=== PATIENT | male | born 1935 | race Caucasian/White ===

== ENCOUNTER → 2020-02-02 | Day surgery (SDC) | payer MEDICARE, BC, OTHER ==
[2020-01-29 11:39] LABS: BASOPHILS # (AUTO) 0.1 (0.0-0.1); BASOPHILS % 1.3 % (0.0-1.0); EOSINOPHILS # (AUTO) 0.1 (0.0-0.4); EOSINOPHILS % 1.7 % (0.0-6.0); HEMATOCRIT 46.5 % (38.2-49.6); HEMOGLOBIN 15.4 g/dL (14.0-18.0); LYMPHOCYTES # (AUTO) 1.5 (1.0-3.2); LYMPHOCYTES % 20.5 % (18.0-39.1); MEAN CORPUSCULAR HEMOGLOBIN 31.2 pg (28-32); MEAN CORPUSCULAR HGB CONC 33.1 g/dL (31-35); MEAN CORPUSCULAR VOLUME 94.1 fL (81-99); MONOCYTES # (AUTO) 0.7 (0.2-0.8); MONOCYTES % 9.9 % (4.4-11.3); NEUTROPHILS # (AUTO) 4.9 (2.1-6.9); NEUTROPHILS % 66.2 % (38.7-80.0); PLATELET COUNT 207 x10e3/uL (140-360); RED BLOOD COUNT 4.94 x10e6/uL (4.3-5.7); RED CELL DISTRIBUTION WIDTH 14.3 % (11.7-14.4)
--- NOTE | 2020-01-29 11:40 | Diagnostic Imaging Report ---
EXAMINATION: CHEST 2 VIEWS INDICATION: Pre-operative COMPARISON: None FINDINGS: LINES/TUBES:None LUNGS:The lungs are well-inflated. No focal consolidation or pulmonary edema. PLEURA:No pleural effusion or pneumothorax. MEDIASTINUM:The cardiomediastinal silhouette appears normal in size and shape. BONES/SOFT TISSUES:No acute osseous injury. Degenerative changes of the visualized spine. ABDOMEN:No free air under the diaphragm. IMPRESSION: No focal pneumonia or pulmonary edema. Signed by: Mike Anders MD on 01/29/2020 11:37 AM
[2020-01-29 12:10] LABS: ALANINE AMINOTRANSFERASE 13 IU/L (0-55); ALBUMIN 3.7 g/dL (3.5-5.0); ALBUMIN/GLOBULIN RATIO 1.1 (0.8-2.0); ALKALINE PHOSPHATASE 89 IU/L (40-150); ANION GAP 13.3 mmol/L (8-16); BLOOD UREA NITROGEN 15 mg/dL (7-26); BUN/CREATININE RATIO 15 (6-25); CALCIUM 9.6 mg/dL (8.4-10.2); CARBON DIOXIDE 25 mmol/L (22-29); CHLORIDE 110 mmol/L (98-107); CREATININE, SERUM 0.99 mg/dL (0.72-1.25); EST GLOMERULAR FILTRATION RATE > 60 ML/MIN (60-); GLUCOSE 85 mg/dL (74-118); POTASSIUM 4.3 mmol/L (3.5-5.1); SODIUM 144 mmol/L (136-145)
[~2020-02-02] MED LIST: B&O 60MG R/S 60 MG SUPP PR ONE; CEFAZOLIN SOD 1 GM/NS 50ML 100 ML IV ONE; COSOPT EYE DROP10 ML OU; DEXAMETHASONE SOD PHOS INJ 4 MG/ML VIAL ONE; DEXTROSE 5%/0.45% SOD CHL 1,000 ML IV ONE; DIATRIZOATE MEGLUMINE 300 MG/1 ML BTL UR ONE; EPHEDRINE SULFATE INJ 50 MG/ML VIAL ONE; ETOMIDATE 2 MG/ML 10 ML INJ IV ONE; FENTANYL CITRATE/PF 100MCG/2 ML INJ ONE; IOPAMIDOL 300MG/ML 50ML INFUS..BTL IV ONE; LATANOPROST2.5 ML OP; LIDOCAINE HCL 2% LOCAL INJ 5 ML SDV VIAL INJ ONE; ONDANSETRON HCL INJ 2MG/ML 2ML 2 MG/ML VIAL ONE; SEVOFLURANE INHAL SOLN 250 ML PEN BTL ONE; TRAVATAN Z5 ML OU
[2020-02-02 11:05] VITALS: BP 143/87
--- NOTE | 2020-02-05 14:25 | Operative Report ---
DATE OF PROCEDURE: 02/02/2020 SURGEON: Rosalino Rogers MD PREOPERATIVE DIAGNOSES: 1. Multiple stones seen in prostatic fossa. 2. Status post seed implantation. 3. Cancer of the prostate. POSTOPERATIVE DIAGNOSES: 1. Multiple stones seen in prostatic fossa. 2. Status post seed implantation. 3. Cancer of the prostate. OPERATION PERFORMED: Cystoscopy, laser lithotripsy of multiple stones in the prostatic fossa with removal of such stones. ANESTHESIOLOGIST: Staff. ANESTHESIA: General. FINDINGS: The patient has a normal urethra in the prostatic fossa. The patient had multiple stones. This stones formed when the patient has one of the multiple seeds that were implanted on his prostate for treatment of his prostate cancer. They come out and they get concretions. The stones are not removal because the original nidus is a seed that is still partially in the prostate. They were difficult to remove. We have done this once before. PROCEDURE IN DETAIL: With the patient under satisfactory general anesthesia, the patient was placed in the supine position on the operating table. Legs were placed on stirrups. Genitalia was prepped with pHisoHex solution and draped in the usual manner. Cystoscopy was performed with a 12-degree angle lens. At this point, examination revealed multiple stones that were attached to the prostate trying to push them with the tip of the cystoscope cause bleeding. Therefore, I introduced the 1000 micron fiber and treated the stones with the laser. The stones were quite hard. I took pictures of the stones and several of the seeds that were seen. There was a little area of concretions on the right side of the prostatic fossa that was right next to the sphincter. I decided not to treat that completely because I did not want to make the patient incontinent. I would have to discuss that with him when he comes to the office and we determined on a cystoscopy in the office. We are going to do about that in the future. I treated all of the remaining stones. I was able to treat 99% of those stones. The fragments were removed with the Ellik evacuator. The larger fragments of fat in the bladder were treated in the bladder and I removed them also using the Ellik evacuator. There was some bleeding that I controlled with the laser by backing off the laser and backing off on the power and I controlled and got good hemostasis. At that point, I introduced the #20-K[place] Gilman catheter after removing the resectoscope and inflated the balloon appropriately, irrigated the urine. The return was clear and I made sure that the patient went to the recovery room in satisfactory condition. DISCHARGE INSTRUCTIONS: Continue medication. Diet as tolerated. Ambulation as tolerated and I discussed with the patient the use of tramadol as well as antibiotics. He agreed with all that. I did call his contact number, so that the contact number knew what was going on. He will be seen in the office on Sunday to remove the Gilman catheter and then we will check to make sure he is able to empty his bladder. After that, I will be discussing with the patient doing a cystoscopy again in the office and more frequently to monitor this seeds that I spit out and formed stones. MD LOY Alexander/MODL /[id number]
== END | disposition home or self-care (01) ==
LOC: OR 06:07
PROVIDERS: ATTEND Urology
DX: N21.0 Calculus in bladder (principal); C61 Malignant neoplasm of prostate; I10 Essential (primary) hypertension; Z88.2 Allergy status to sulfonamides; Z01.810 Encounter for preprocedural cardiovascular examination; Z01.812 Encounter for preprocedural laboratory examination; Z11.59 Encounter for screening for other viral diseases; Z98.890 Other specified postprocedural states
CPT/HCPCS: 36415; 52317; 71046; 74420; 80053; 85025; 87086; 87635; 88300; 93005; J0690; J1100; J2001; J2405; J3010; Q9967

== ENCOUNTER 2024-06-15 07:22 | Inpatient (IN) | payer BC, MEDICARE ==
[2024-06-15] VITALS (10 sets, daily range): BP systolic 101–114; BP diastolic 43–59; PULSE 60–74; RESP 12–20; TEMP 98.7–99.1; O2SAT 97–100
[~2024-06-15] VITALS: Ht 182.9 cm; Wt 93.4 kg
[~2024-06-15 07:22] MED LIST changes: -B&O 60MG R/S 60 MG SUPP PR ONE; -CEFAZOLIN SOD 1 GM/NS 50ML 100 ML IV ONE; -DEXAMETHASONE SOD PHOS INJ 4 MG/ML VIAL ONE; -DEXTROSE 5%/0.45% SOD CHL 1,000 ML IV ONE; -DIATRIZOATE MEGLUMINE 300 MG/1 ML BTL UR ONE; -EPHEDRINE SULFATE INJ 50 MG/ML VIAL ONE; -ETOMIDATE 2 MG/ML 10 ML INJ IV ONE; -FENTANYL CITRATE/PF 100MCG/2 ML INJ ONE; -IOPAMIDOL 300MG/ML 50ML INFUS..BTL IV ONE; -LIDOCAINE HCL 2% LOCAL INJ 5 ML SDV VIAL INJ ONE; -ONDANSETRON HCL INJ 2MG/ML 2ML 2 MG/ML VIAL ONE; -SEVOFLURANE INHAL SOLN 250 ML PEN BTL ONE
[2024-06-15 08:59] LABS: BASOPHILS # (AUTO) 0.1 (0.0-0.1); BASOPHILS % 0.5 % (0.0-1.0); EOSINOPHILS % 0.3 % (0.0-6.0); HEMATOCRIT 44.6 % (38.2-49.6); HEMOGLOBIN 14.6 g/dL (14.0-18.0); LYMPHOCYTES # (AUTO) 0.3 (1.0-3.2); LYMPHOCYTES % 2.3 % (18.0-39.1); MEAN CORPUSCULAR HEMOGLOBIN 31.9 pg (28-32); MEAN CORPUSCULAR HGB CONC 32.7 g/dL (31-35); MEAN CORPUSCULAR VOLUME 97.4 fL (81-99); MONOCYTES # (AUTO) 0.4 (0.2-0.8); MONOCYTES % 3.3 % (4.4-11.3); NEUTROPHILS # (AUTO) 12.3 (2.1-6.9); NEUTROPHILS % 93.1 % (38.7-80.0); PLATELET COUNT 168 x10e3/uL (140-360); RED BLOOD COUNT 4.58 x10e6/uL (4.3-5.7); RED CELL DISTRIBUTION WIDTH 14.2 % (11.7-14.4); WHITE BLOOD COUNT 13.18 x10e3/uL (4.8-10.8)
[2024-06-15] MEDS: SODIUM CHLORIDE 0.9% 1000ML 1,000 ML IV STA ×3 (09:09→11:30)
[2024-06-15 09:10] LABS: INR 1.09; PROTHROMBIN TIME 14.7 seconds (11.9-14.5)
[2024-06-15] MEDS: ACETAMINOPHEN 325 MG TAB PO ONE (09:10)
[2024-06-15 09:11] LABS: PARTIAL THROMBOPLASTIN TIME 26.3 seconds (23.8-35.5)
[2024-06-15 09:18] LABS: TROPONIN I < 0.05 ng/mL (0.0-0.40)
[2024-06-15 09:20] LABS: ALBUMIN 3.7 g/dL (3.5-5.0); ALBUMIN/GLOBULIN RATIO 1.2 (0.8-2.0); ALKALINE PHOSPHATASE 96 IU/L (40-150); ANION GAP 13.7 mmol/L (8-16); BILIRUBIN,TOTAL 0.9 mg/dL (0.2-1.2); BLOOD UREA NITROGEN 22 mg/dL (7-26); BUN/CREATININE RATIO 22 (6-25); CALCIUM 9.6 mg/dL (8.4-10.2); CARBON DIOXIDE 20 mmol/L (22-29); CHLORIDE 109 mmol/L (98-107); CREATININE, SERUM 1.02 mg/dL (0.72-1.25); EST GLOMERULAR FILTRATION RATE 71 ML/MIN (>=60); GLUCOSE 103 mg/dL (74-118); MAGNESIUM 1.7 MG/DL (1.3-2.1); POTASSIUM 3.7 mmol/L (3.5-5.1); SODIUM 139 mmol/L (136-145); TOTAL PROTEIN 6.9 g/dL (6.5-8.1)
[2024-06-15 09:34] LABS: ALANINE AMINOTRANSFERASE < 6 IU/L (0-55)
[2024-06-15 09:44] LABS: COVID 19 ANTIGEN NOT DETECTED (NEGATIVE)
[2024-06-15 09:45] LABS: INFLUENZAE A&B ANTIGEN (RAPID) NEGATIVE (NEGATIVE); RESPIRATORY SYNC. VIRUS NEGATIVE (NEGATIVE)
[2024-06-15 11:18] LABS: BILIRUBIN,URINE SMALL (NEGATIVE); CLARITY,URINE SL CLOUDY (CLEAR); COLOR,URINE AMBER (YELLOW); GLUCOSE, URINE NEGATIVE (NEGATIVE); KETONES,URINE TRACE (NEGATIVE); LEUKOCYTE ESTERASE ,URINE TRACE (NEGATIVE); NITRITE,URINE NEGATIVE (NEGATIVE); PH,URINE 5.5 (5 - 7); PROTEIN,URINE DIPSTICK TRACE (NEGATIVE); URINE UROBILINOGEN 1 mg/dL (0.2 - 1)
[2024-06-15 11:34] LABS: BACTERIA,URINE MODERATE /HPF; WBC,URINE (MAN) 0-5 /HPF (0-5)
[2024-06-15] MEDS ORDERED: ONDANSETRON HCL INJ 2MG/ML 2ML 2 MG/ML VIAL IV PRN (11:45)
[2024-06-15] MEDS ORDERED: Vancomycin IV 1 GM VIAL ONE (15:23)
[2024-06-15] MEDS ORDERED: SODIUM CHLORIDE 0.9% 250ML 250 ML ONE (15:23)
[2024-06-15] MEDS: Vancomycin IV 1 GM in SODIUM CHLORIDE 0.9% 250ML 250 ML IV ONE (15:45)
[2024-06-15] MEDS: SODIUM CHLORIDE 0.9% 1000ML 1,000 ML IV SCH (19:34)
[2024-06-15 21:21] LABS: TROPONIN I 0.041 ng/mL (0-0.300)
[2024-06-16] VITALS (17 sets, daily range): BP systolic 95–148; BP diastolic 40–95; PULSE 57–71; RESP 14–25; TEMP 98.2–99; O2SAT 97–100
[2024-06-16 06:42] LABS: BASOPHILS # (AUTO) 0.1 (0.0-0.1); BASOPHILS % 0.6 % (0.0-1.0); HEMATOCRIT 37.8 % (38.2-49.6); HEMOGLOBIN 12.3 g/dL (14.0-18.0); LYMPHOCYTES # (AUTO) 0.6 (1.0-3.2); MEAN CORPUSCULAR HEMOGLOBIN 32.3 pg (28-32); MEAN CORPUSCULAR HGB CONC 32.5 g/dL (31-35); MEAN CORPUSCULAR VOLUME 99.2 fL (81-99); MONOCYTES # (AUTO) 0.5 (0.2-0.8); MONOCYTES % 5.7 % (4.4-11.3); NEUTROPHILS # (AUTO) 8.3 (2.1-6.9); NEUTROPHILS % 87.3 % (38.7-80.0); PLATELET COUNT 140 x10e3/uL (140-360); RED BLOOD COUNT 3.81 x10e6/uL (4.3-5.7); RED CELL DISTRIBUTION WIDTH 14.7 % (11.7-14.4); WHITE BLOOD COUNT 9.49 x10e3/uL (4.8-10.8)
[2024-06-16 07:11] LABS: ALBUMIN 2.7 g/dL (3.5-5.0); ANION GAP 11.3 mmol/L (8-16); BILIRUBIN,TOTAL 0.5 mg/dL (0.2-1.2); CALCIUM 8.4 mg/dL (8.4-10.2); CREATININE, SERUM 0.82 mg/dL (0.72-1.25); TOTAL PROTEIN 5.5 g/dL (6.5-8.1)
[2024-06-16 07:16] LABS: POTASSIUM 3.3 mmol/L (3.5-5.1)
[2024-06-16 07:49] LABS: TROPONIN I 0.045 ng/mL (0-0.300)
[2024-06-16] MEDS: POTASSIUM CHLORIDE 20MEQ/100ML 100 ML IV ONE (08:44)
[2024-06-16] MEDS ORDERED: XALATAN2.5 ML OU (09:03)
[2024-06-16] MEDS ORDERED: SINEMET 25-1001 EACH PO (09:03)
[2024-06-16] MEDS ORDERED: AMLODIPINE BESYL5 MG PO (09:03)
[2024-06-16] MEDS: DORZOLAMIDE/TIMOLOL (OPTH SOL) 10 ML DRPETTE OP SCH (12:16)
[2024-06-16] MEDS: MUPIROCIN 2% OINT 22 GM TUBE NS SCH (15:46)
[2024-06-16] MEDS: CARBIDOPA/LEVODOPA 25/100 TAB PO SCH (15:46)
[2024-06-16 17:52] LABS: TROPONIN I 0.021 ng/mL (0-0.300)
[2024-06-16] MEDS: LATANOPROST(OPTH) 2.5 ML BTL OU SCH (20:26)
[2024-06-16] MEDS ORDERED: LATANOPROST(OPTH) 2.5 ML BTL OP SCH (21:00)
[2024-06-17 00:31] VITALS: BP 138/62; PULSE 60; RESP 18; TEMP 98.3; O2SAT 98
[2024-06-17 04:00] VITALS: BP 133/92; PULSE 59; RESP 18; TEMP 98.2; O2SAT 97
[2024-06-17 06:47] LABS: BASOPHILS # (AUTO) 0.1 (0.0-0.1); BASOPHILS % 0.9 % (0.0-1.0); EOSINOPHILS # (AUTO) 0.2 (0.0-0.4); EOSINOPHILS % 2.8 % (0.0-6.0); HEMATOCRIT 39.9 % (38.2-49.6); HEMOGLOBIN 12.9 g/dL (14.0-18.0); LYMPHOCYTES % 16.8 % (18.0-39.1); MEAN CORPUSCULAR HEMOGLOBIN 32.1 pg (28-32); MEAN CORPUSCULAR HGB CONC 32.3 g/dL (31-35); MEAN CORPUSCULAR VOLUME 99.3 fL (81-99); MONOCYTES # (AUTO) 0.9 (0.2-0.8); MONOCYTES % 15.2 % (4.4-11.3); NEUTROPHILS # (AUTO) 3.6 (2.1-6.9); NEUTROPHILS % 63.9 % (38.7-80.0); PLATELET COUNT 124 x10e3/uL (140-360); RED BLOOD COUNT 4.02 x10e6/uL (4.3-5.7); RED CELL DISTRIBUTION WIDTH 14.7 % (11.7-14.4); WHITE BLOOD COUNT 5.64 x10e3/uL (4.8-10.8)
[2024-06-17 07:07] LABS: ALBUMIN 2.6 g/dL (3.5-5.0); ALBUMIN/GLOBULIN RATIO 0.9 (0.8-2.0); ANION GAP 11.5 mmol/L (8-16); BILIRUBIN,TOTAL 0.4 mg/dL (0.2-1.2); CALCIUM 8.7 mg/dL (8.4-10.2); CREATININE, SERUM 0.84 mg/dL (0.72-1.25); POTASSIUM 3.5 mmol/L (3.5-5.1); TOTAL PROTEIN 5.6 g/dL (6.5-8.1)
[2024-06-17 08:39] VITALS: BP 134/74; PULSE 60; RESP 18; TEMP 98.8; O2SAT 98
[2024-06-17 09:21] VITALS: BP 134/74; PULSE 60; RESP 18; TEMP 98.8; O2SAT 98
[2024-06-17 11:49] VITALS: BP 111/67; PULSE 62; RESP 18; TEMP 98.2; O2SAT 97
[2024-06-17 15:42] VITALS: BP 155/59; PULSE 54; RESP 18; TEMP 97.9; O2SAT 98
[2024-06-17] MEDS ORDERED: CIPROFLOXACIN250 MG PO (17:15)
[2024-06-17] MEDS ORDERED: VENELEX OINTMEN60 GM TP (17:15)
[2024-06-17] MEDS: POTASSIUM CHLORIDE 10MEQ EA PO ONE (17:20)
[2024-06-17] MEDS ORDERED: SODIUM CHLORIDE 0.9% 1000ML 1,000 ML ONE (17:53)
[2024-06-17] MEDS ORDERED: CIPROFLOXACIN 250 MG TAB PO SCH (18:00)
[2024-06-17] MEDS ORDERED: BALSAM PERU/CASTOR OIL 60 GM OINT...G. TP SCH (20:00)
== END 2024-06-17 19:35 | disposition home or self-care (01) | DRG 872 ==
LOC: ER 07:40 → ERHOLD 12:07 → ICU 21:10 → MED/SURG2 06-16 15:20
PROVIDERS: ADMIT Internal Medicine; ATTEND Internal Medicine
PROC: 02HV33Z Insertion of Infusion Device into Superior Vena Cava, Percutaneous Approach (ICD-10-PCS; principal; 2024-06-15)
PROC: 3E0333Z Introduction of Anti-inflammatory into Peripheral Vein, Percutaneous Approach (ICD-10-PCS; 2024-06-15)
DX: A41.9 Sepsis, unspecified organism (principal); N39.0 Urinary tract infection, site not specified; Z16.24 Resistance to multiple antibiotics; G20.C Parkinsonism, unspecified; E87.6 Hypokalemia; I10 Essential (primary) hypertension; I95.9 Hypotension, unspecified; Z11.52 Encounter for screening for COVID-19; Z85.46 Personal history of malignant neoplasm of prostate; Z90.79 Acquired absence of other genital organ(s); Z88.2 Allergy status to sulfonamides
CPT/HCPCS: 0223U; 36415; 36569; 71045; 80053; 81001; 82550; 83605; 83735; 84484; 85025; 85610; 85730; 87040; 87086; 87186; 87205; 87400; 87420; 93005; 99252; 99284; J0696; J2543; J3480; J7030; J7050